=== PATIENT | female | born 1950 ===

== ENCOUNTER 2019-11-12 11:53 | Day surgery (SDC) | payer MEDICARE, BC ==
[~2019-11-12 11:53] MED LIST: Buffered Lidocaine 1% SYRIN* 1 ML/SYRINGE INTRADERM ONE; Dexamethasone IV* 4 MG/ML 1 ML (4 MG) IV SLOW PU ONE; Famotidine IV* 10 MG/ML 2 ML (20 mg) IV ONE; Lactated Ringers 1000 ML Bag* 1,000 ML IV SCH
[2019-11-12] MEDS ORDERED: ceFAZolin 2 GM PREMIX in ORs 2 GM/50 ML BAG ONE (12:12)
[2019-11-12] MEDS ORDERED: Dexamethasone IV* 4 MG/ML 1 ML (4 MG) ONE (12:12)
[2019-11-12] MEDS ORDERED: Famotidine IV* 10 MG/ML 2 ML (20 mg) ONE (12:12)
[2019-11-12] MEDS ORDERED: Midazolam* 1 MG/ML 2 ML VIAL (2 MG) ONE (13:13)
[2019-11-12] MEDS ORDERED: Lidocaine 2% PF * 5 ML VIAL ONE (13:13)
[2019-11-12] MEDS ORDERED: Propofol* 10 MG/ML 20 ML BTL ONE (13:13)
[2019-11-12] MEDS ORDERED: fentaNYL* 50 MCG/ML 2 ML VIAL (100 MCG VIAL) ONE ×2 (13:13→14:15)
[2019-11-12] MEDS ORDERED: ROPIVACAINE 5 MG/ML 30 ML BTL (0.5%) ONE (13:15)
[2019-11-12] MEDS ORDERED: Bupivacaine 0.25% SDV* 30 ML ONE (13:19)
[2019-11-12] MEDS ORDERED: Ketorolac INJ* 30 MG/ML 1 ML VIAL ONE (13:49)
[2019-11-12] MEDS ORDERED: Glycopyrrolate IV* 0.2 MG/ML 1 ML VIAL ONE (14:11)
[2019-11-12] MEDS ORDERED: Ondansetron INJ* 2 MG/ML VIAL ONE (14:32)
[2019-11-12] MEDS ORDERED: HYDROcodone/ACETAMIN 5-325 MG* 1 TAB ONE (15:43)
[2019-11-12 16:03] VITALS: BP 169/83
--- NOTE | 2019-11-13 02:40 | OP ---
DATE OF OPERATION: 11/12/19 - [facility] DATE OF : 48 SURGEON: Theodore Garnett MD. [employer]: GEORGE Cruz. ANESTHESIOLOGIST: Dr. Israel. ANESTHESIA: General. PRE-OP DIAGNOSIS: Right intraarticular, 3-fragment distal radius fracture. POST-OP DIAGNOSIS: Right intraarticular, 3-fragment distal radius fracture. OPERATIVE PROCEDURE: Open reduction internal fixation of right intraarticular, 3- fragment distal radius fracture. ESTIMATED BLOOD LOSS: 10 mL. COMPLICATIONS: None. FINDINGS: See above and below. DESCRIPTION OF PROCEDURE: Ms. Salazar was seen in preoperative holding area. The correct site, side, and procedure were identified. We came back to the operating room. The arm was prepped and draped in the usual fashion and time- out was performed. The arm was exsanguinated with the Esmarch and the tourniquet was inflated. I made a longitudinal incision over the distal FCR tendon. Dissection was carried down. The FCR sheath was opened. The tendon was retracted ulnarly. The subsheath was opened. The interval between the FPL tendon and the radial artery took us down to the pronator, which was released off the radial aspect of the distal radius and then T'd back transversely distally preserving the volar capsular ligament. The fracture site was cleaned, 10 pounds of longitudinal retraction had been applied. A baby Hohmann was used to correct translation. The fracture was reduced. Synthes variable angle distal radius plate was brought in and pinned into place. I secured the plate proximally with one 2.4 mm screw in the oblong hole. The plate was then fixed distally with multiple locking screws. The first screw distally was a cortical screw to get good plate to bone apposition, this was then later switched out for a locking screw. I then placed two screws proximally, one was a cortical screw, one was a locking screw. At this point, everything was looking very good. I confirmed the reduction and the plate placement and all the hardware on mini C- arm fluoroscopy. Everything was looking very good. The wound was irrigated out. The pronator was repaired with 3-0 Vicryl suture. The skin was closed with 4-0 Monocryl suture and Steri-Strips; 0.25% Marcaine was infiltrated all about the operative site. She was placed in a well-padded short-arm plaster wrist splint and taken to the recovery room in stable condition. [id number]/[facility] #: [id number] ZULEIMA
== END 2019-11-12 16:15 | disposition home or self-care (01) ==
LOC: OREAST 11:53
PROVIDERS: ATTEND Orthopaedic Surgery Hand Surgery
DX: S52.571A Other intraarticular fracture of lower end of right radius, initial encounter for closed fracture (principal); W19.XXXA Unspecified fall, initial encounter; Y92.9 Unspecified place or not applicable; I10 Essential (primary) hypertension; E78.5 Hyperlipidemia, unspecified; M19.90 Unspecified osteoarthritis, unspecified site; Z85.07 Personal history of malignant neoplasm of pancreas; Z96.643 Presence of artificial hip joint, bilateral
CPT/HCPCS: 76000; C1713; C1776; J0690; J1100; J1885; J2250; J2405; J2704; J2795; J3010; J3490